=== PATIENT | male | born 2000 | race Caucasian/White ===

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

== ENCOUNTER → 2019-11-22 | Outpatient (CLI) | payer BC ==
--- NOTE | 2019-11-22 17:03 | RADIOLOGY REPORT (SQ) ---
EXAM DESCRIPTION: FOOT LEFT COMPLETE COMPLETED DATE/TIME: 11/22/2019 4:55 pm REASON FOR STUDY: CHRONIC MULTIFOCAL OSTEOMYELITIS, LEFT ANKLE AND FOOT M86.372 CHRONIC MULTIFOCAL OSTEOMYELITIS, LEFT ANKLE AND SOHEILA COMPARISON: None. NUMBER OF VIEWS: Three views. TECHNIQUE: AP, lateral and oblique radiographic images acquired of the left foot. LIMITATIONS: None. FINDINGS: MINERALIZATION: Normal. BONES: No acute fracture or dislocation. No worrisome bone lesions. JOINTS: No effusions. SOFT TISSUES: No soft tissue swelling. No foreign body. OTHER: No other significant finding. IMPRESSION: NEGATIVE STUDY OF THE LEFT FOOT. NO RADIOGRAPHIC EVIDENCE OF ACUTE INJURY. TECHNICAL DOCUMENTATION: JOB ID: [id number] 2010 [employer]- All Rights Reserved Reading location - IP/workstation name: [id number]
== END ==
LOC: OD 16:27
PROVIDERS: ATTEND Podiatrist Foot & Ankle Surgery
DX: M86.372 Chronic multifocal osteomyelitis, left ankle and foot (principal)